=== PATIENT | male | born 1950 | race Caucasian/White ===

== ENCOUNTER 2016-09-17 04:30 | Emergency (ER) | payer MEDICARE ==
[~2016-09-17] VITALS: Ht 162.6 cm; Wt 81.8 kg
[2016-09-17] MEDS ORDERED: IBUPROFEN 600 MG TABLET PO ONE (06:30)
[2016-09-17 06:32] VITALS: BP 156/87
== END 2016-09-17 06:34 | disposition home or self-care (01) ==
LOC: EMS 04:35
DX: J40 Bronchitis, not specified as acute or chronic (principal)
CPT/HCPCS: 71020; 99284